=== PATIENT | female | born 1975 | race Caucasian/White ===

== ENCOUNTER 2018-10-30 18:50 | Emergency (ER) | payer BC, OTHER ==
--- NOTE | 2018-10-30 18:58 | PDOC ---
Rapid Medical Evaluation Chief Complaint: Injury Time Seen by Provider: 10/30/18 18:56 Medical Evaluation: Allergies Allergy/AdvReac Type Severity Reaction Status Date / Time No Known Allergies Allergy Verified 10/30/18 18:54 10/30/18 18:56 I have performed a brief in-person evaluation of this patient. The patient presents with a chief complaint of: L foot sole pain for 10 days after [place] something [place] the beach, unknown what she stepped on. Sent by Podiatry for imaging. Pertinent physical exam findings: No skin changes, skin intact, no breaks in skin, no FB entry point seen under L foot. Mild tenderness at ball of mid foot I have ordered the following: Foot xray. Pt declines pain meds. The patient will proceed to the ED for further evaluation. 10/30/18 18:59 Discharge Disposition - Diagnosis Foot pain, left - Referrals - Patient Instructions - Post Discharge Activity
[2018-10-30 19:04] VITALS: BP 167/90; PULSE 81; TEMP 98.2; BMI 39.1
--- NOTE | 2018-10-30 19:41 | PDOC ---
History of Present Illness - General Chief Complaint: Injury Stated Complaint: LEFT FOOT INJURY Time Seen by Provider: 10/30/18 18:56 History Source: Patient Exam Limitations: Clinical Condition - History of Present Illness Initial Comments: 10/30/18 19:46 Patient with no significant past medical history present with complaint of persistent intermittent pain to the sole of left foot over distal aspect status post epinephrine [place] the [place]. 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 Patient was seen by podiatry 3 days ago for symptoms and reported podiatry referred her to have MRI of left foot done as no foreign object was seen on exam but decided to come here today for evaluation as pain has been persistent. Patient reported pain only comes on when she wears a hard sole shoes denies any other symptoms Occurred: reports: last week Past History - Past Medical History Allergies/Adverse Reactions: Allergies Allergy/AdvReac Type Severity Reaction Status Date / Time No Known Allergies Allergy Verified 10/30/18 18:54 Home Medications: Ambulatory Orders Naproxen 500 mg PO BID PRN #20 tablet 10/30/18 Asthma: No Cancer: No Cardiac Disorders: No COPD: No Diabetes: No HTN: No Seizures: No Thyroid Disease: No - Suicide/Smoking/Psychosocial Hx Smoking History: Never smoked Have you smoked in the past 12 months: No Hx Alcohol Use: No Drug/Substance Use Hx: No Hx Substance Use Treatment: No Review of Systems - Review of Systems Able to Perform ROS?: Yes Is the patient limited Kosovan proficient: No Constitutional: No: Malaise, Weakness HEENTM: No: Symptoms Reported Respiratory: No: Symptoms reported Cardiac (ROS): No: Symptoms Reported ABD/GI: No: Symptoms Reported Musculoskeletal: Yes: Symptoms Reported, See HPI, Muscle Pain (plantar aspect of left foot). No: Muscle Weakness Integumentary: No: Symptoms Reported, Change in Color, Erythema, Lumps Neurological: No: Symptoms reported, Numbness, Paresthesia, Tingling All Other Systems: Reviewed and Negative *Physical Exam - Vital Signs Last Vital Signs Temp Pulse Resp BP Pulse Ox 98.2 F 81 18 167/90 99 10/30/18 18:56 10/30/18 18:56 10/30/18 18:56 10/30/18 18:56 10/30/18 18:56 - Physical Exam Comments: 10/30/18 19:53 GENERAL: Well developed, well nourished. Awake and alert. No acute distress. PULMONARY: No evidence of respiratory distress. MUSCULOSKELETAL : mild tenderness to deep palpation distal of left foot on plantar side over second to third metatarsal. Skin is intact and no evidence of entry wound to skin and no skin erythema or increased warmth. SKIN: Warm and dry. Normal capillary refill. No rashes. No erythema. No entry wound or puncture wound. NEUROLOGICAL: Alert, awake, appropriate. No motor deficits in the lower extremities. Gait is normal without ataxia. PSYCHIATRIC: Cooperative. Good eye contact. Appropriate mood and affect. General Appearance: Yes: Nourished, Appropriately Dressed. No: Apparent Distress Medical Decision Making - Medical Decision Making 10/30/18 19:49 Patient with no significant past medical history present with complaint of persistent intermittent pain to the sole of left foot over distal aspect status post epinephrine foreign object [place] the beach [place]. 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 Patient was seen by podiatry 3 days ago for symptoms and reported podiatry referred her to have MRI of left foot done as no foreign object was seen on exam but decided to come here today for evaluation as pain has been persistent. Patient reported pain only comes on when she wears a hard sole shoes denies any other symptoms Exam significant for mild tenderness to deep palpation distal of left foot on plantar side over second to third metatarsal. Skin is intact and no evidence of entry wound to skin and no skin erythema or increased warmth. X-ray of left foot shows no foreign object or acute pathology. Symptom is likely plantar fasciitis and Patient is stable for discharge on naproxen when necessary for pain with advised to do hot compresses and follow-up for MRI as instructed by podiatry if symptoms persist *DC/Admit/Observation/Transfer Diagnosis at time of Disposition: Foot pain, left - Discharge Dispostion Disposition: HOME Condition at time of disposition: Stable Decision to Admit order: No - Prescriptions Prescriptions: Naproxen 500 mg PO BID PRN #20 tablet PRN Reason: pain - Referrals Referrals: Shauna Saeed [Primary Care Provider] - - Patient Instructions Printed Discharge Instructions: DI for Plantar Fasciitis Additional Instructions: No foreign object seen in left foot on x-ray. Apply warm compress to left foot 2 -3 times a day as needed for pain. Take prescribed medication as needed for pain. Follow-up for MRI as instructed by roll reclaimer if no improvement in 4 days - Post Discharge Activity
== END 2018-10-30 19:57 | disposition home or self-care (01) ==
LOC: JER 18:50 → JERFT 18:50
DX: M79.672 Pain in left foot (principal)
CPT/HCPCS: 73630-TC-LT; 99281-25

== ENCOUNTER 2024-01-22 16:32 | Emergency (ER) | payer OTHER ==
[2024-01-22 16:40] VITALS: BP 156/85; PULSE 71; RESP 18; TEMP 98.1; BMI 36.0
[2024-01-22] MEDS ORDERED: ERYTHROMYCIN 0.5% OPHTHALMIC OINTMENT 3.5 GM TUBE ONE (17:46)
[2024-01-22] MEDS ORDERED: ACETAMINOPHEN 500 MG TABLET (FP) ONE (17:46)
[2024-01-22] MEDS ORDERED: FLUORESCEIN NA 1 EA STRIP ONE (17:47)
[2024-01-22] MEDS: FLUORESCEIN NA 1 EA STRIP OS ONE (17:49)
[2024-01-22] MEDS: ACETAMINOPHEN 500 MG TABLET (FP) PO ONE (17:49)
[2024-01-22] MEDS: ERYTHROMYCIN 0.5% OPHTHALMIC OINTMENT 3.5 GM TUBE OS ONE (17:49)
== END 2024-01-22 18:19 | disposition home or self-care (01) ==
LOC: JERFT 16:32
DX: S05.02XA Injury of conjunctiva and corneal abrasion without foreign body, left eye, initial encounter (principal); W22.8XXA Striking against or struck by other objects, initial encounter
CPT/HCPCS: 99283-25